=== PATIENT | female | born 1940 | race Caucasian/White ===

== ENCOUNTER 2016-09-17 13:00 | Inpatient (IN) | payer MEDICARE, BC ==
[~2016-09-17] VITALS: Ht 154.9 cm; Wt 62.9 kg
--- NOTE | ~2016-09-17 | ENPV ---
Carotid Duplex Study Demographics Patient Name NELIDA VALENCIA Date of Study 09/18/2016 Patient Number [id number] Gender Female Date of 1940 Age 76 Visit Number [id number] Height 61 Accession Number [id number] Weight 137 Referring Ollie Calderon MD Interpreting Chi Webber MD Physician Physician Physician Ordering Ollie Medina Contract Recruiter Physician Kvng [employer]IV[employer] Display Designer Outside Siena Perez [facility], T Conclusions Summary The right internal carotid artery has mild, 1-39%, plaque and stenosis. The right vertebral artery is present with antegrade flow. The left internal carotid artery has mild, 1-39%, plaque and stenosis at proximal ICA, there are elevated velocities of 108/31 cm/s at distal ICA. The left vertebral artery is present with antegrade flow. Procedure Type of Study: Cerebral:Carotid, Carotid Doppler Bilateral. Indications for Study:Stroke. Appropriate Use Criteria:9 Patient Status:Routine. Study Location:Inpatient Portable. Technical Quality:Adequate visualization. Velocities are measured in cm/s ; Diameters are measured in cm Carotid Right Measurements Carotid Left Measurements + +--------+--------+ + + + +--------+ --------+ + + !Location !PSV !EDV !Angle !%Stenosis ! !Location !PSV ! EDV !Angle !%Stenosis ! + +--------+--------+ + + + +--------+ --------+ + + !Prox CCA !82 !15 !60 ! ! !Prox CCA !88 ! 13 !60 ! ! + +--------+--------+ + + + +--------+ --------+ + + !Dist CCA !68 !12 !60 ! ! !Dist CCA !61 ! 11 !60 ! ! + +--------+--------+ + + + +--------+ --------+ + + !Prox ICA !68 !16 !60 ! ! !Prox ICA !71 ! 18 !60 ! ! + +--------+--------+ + + + +--------+ --------+ + + !Dist ICA !86 !19 !60 ! ! !Dist ICA !108 ! 31 !60 ! ! + +--------+--------+ + + + +--------+ --------+ + + !Prox ECA !84 ! !60 ! ! !Prox ECA !83 ! !60 ! ! + +--------+--------+ + + + +--------+ --------+ + + !Vertebral !48 !10 !60 ! ! !Vertebral !62 ! 14 !60 ! ! + +--------+--------+ + + + +--------+ --------+ + + !Subclavian !137 ! !60 ! ! !Subclavian !147 ! !60 ! ! + +--------+--------+ + + + +--------+ --------+ + + - There is antegrade vertebral flow noted on the right side. - There is antegrade verte bral flow noted on the left side. - Add'l Measurements:ICAPSV/CCAPSV 1.05.ICAEDV/CCAEDV 1.27. - Add'l Measurements:ICAPS V/CCAPSV 1.23.ICAEDV/CCAEDV 2.38. Impressions Right Impression There is a mild amount of smooth heterogeneous plaque in the right internal carotid artery . Left Impression There is a mild amount of smooth heterogeneous plaque in the left internal carotid artery . Signature dtt: SHRUTHI VELAZQUEZ dtd: 09/18/16 1015 Physician Self Edit
--- NOTE | ~2016-09-17 | CON ---
PATIENT'S NAME: NELIDA VALENCIA [facility] AGE: 76 Y [address] ROOM: [place] [address] LOCATION: [facility] [place] ADMIT DATE: 09/17/2016 Consultation DISCHARGE DATE: 09/22/2016 FAMILY PHYSICIAN: Physician, Unknown ATTENDING PHYSICIAN: Adam Levin I personally saw the patient via teleconferencing with nurse practitioner, Martha Browne, on 09/18/2016. Rdz portions of history and examination were repeated. I agree with the discussed assessment and plan of care. Lilliam Foy M.D. Tele specialist. MD YIFAN SCHMID/modl /[id number] d: t: 09/24/16 1141, CONSULTATION REPORT
--- NOTE | ~2016-09-17 | DS ---
PATIENT'S NAME: NELIDA VALENCIA [facility] AGE: 76 Y [address] ROOM: [address] [address] LOCATION: [facility] ADMIT DATE: 09/17/2016 Discharge Summary DISCHARGE DATE: 09/22/2016 FAMILY PHYSICIAN: Physician, Unknown ATTENDING PHYSICIAN: Adam Levin FINAL DIAGNOSES: 1. 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 2. Essential hypertension. 3. Dyslipidemia. 4. Osteoarthritis. 5. Lumbar stenosis. Please see the history and physical dictated by Dr. Levin for full details, but in short, the patient was transferred from [place] after presenting with aphasia. LABORATORY DATA: At discharge, sodium 140, potassium 3.9, chloride 109, CO2 23, BUN 5, and creatinine 0.4. Magnesium is 2.1. Cholesterol 170, HDL 67, LDL 93. Troponin on admission was less than 0.04. White blood cell count on admission 12.8, hemoglobin 13.7, hematocrit 41, and platelet count 230. RADIOLOGIC STUDIES: MRI of the brain done on admission did show a large left MCA territory ischemic stroke. MRI of the brain that was done did show a large stroke in the left MCA territory. Cardiovascular Studies: Echocardiogram done on admission showed an ejection fraction was 60%, she had a severely dilated left atrium, she had diastolic dysfunction and mild-to- moderate aortic regurgitation. A bubble study was negative. A SILVIA was done because of concern that she may have thrombus in the atrium, this was done by Dr. Pride. At that time, there was a suggestion of PFO by Doppler. A cardiac CT then was completed and the cardiac CT did not show any evidence of patent foramen ovale. HOSPITAL COURSE: The patient was admitted to the hospital. She was seen by Neurology. Her presentation was passed the tPA window. She was given IV fluids because her blood pressures were on the low side. PT, OT, and Speech Therapy did see her and assess her. She did have an MRI which did show that she had the large MCA stroke. She initially had Accu-Cheks and her blood sugars were stable. The decision was made to try and keep her blood pressure in the 140s-150s range. Therefore, her home medications were held and she did receive IV fluids. She was seen in evaluation by Dr. Box as a candidate for rehab. The family did state from the outset that it might be easier for them to have physical therapy close to where one of them were close to their home in [place]. Neurology did think that she should have a SILVIA to make sure she did not have any left atrial thrombi. The SILVIA was somewhat PATIENT'S NAME: NELIDA VALENCIA [facility] AGE: 76 Y [address] ROOM: [address] [place], [place] [address] LOCATION: [facility] ADMIT DATE: 09/17/2016 Discharge Summary DISCHARGE DATE: 09/22/2016 FAMILY PHYSICIAN: Physician, Unknown ATTENDING PHYSICIAN: Adam Levin A suggestive of PFO and therefore a cardiac CT was done. The cardiac CT was felt not to show that there was a PFO. The patient was informed that she would not need any surgical intervention. She did continue to work with Therapy. Speech did upgrade her the day prior to discharge to a mechanical soft diet with thin liquids. Arrangements were made for her to be transferred to [facility] in [place]. DISCHARGE INSTRUCTIONS: She is to have a soft mechanical diet with thin liquids and weightbearing as tolerated. MEDICATIONS: 1. Lipitor 40 mg daily. 2. Plavix 75 mg daily. 3. Protonix 40 mg daily. 4. Tylenol 650 mg every 4 hours as needed. 5. Tramadol 50 mg every 6 hours as needed for pain. 6. Multivitamin daily. 7. Calcium with vitamin D 2 tablets daily. 8. Lopressor 12.5 mg twice daily, hold if her heart rates less than 60 or systolic blood pressure less than 110. I did discuss this discharge with Neurology, with Dr. Pride from Cardiology, and with Dr. Mal Caballero, the patient's primary care provider. KEVIN MARTINEZ MD LAW/modl /[id number] CC: MD Mal Yañez MD d: 09/22/16 0311 t: 10/12/16 1832, DISCHARGE SUMMARY
--- NOTE | ~2016-09-17 | ECHO ---
Transesophageal Echocardiography Report (SILVIA) Demographics Patient Name NELIDA VALENCIA Date of Study 09/20/2016 Patient Number [id number] Visit Number [id number] Date of 1940 Room Number [address] Gender Female Number Age 76 year(s) Referring Erick Gil MD Bi Consultant Miriam Goel, Physician RT,RVT,RDCS Physician Interpreting Makenzie Pride MD Knockout Man Physician Supervising Ordering Makenzie Pride MD, MD/MLP Physician Nurse Stress Organic Preparation Technician Conclusions Summary Normal right and left ventricular size and systolic function. The left atrium is mildly dilated. There is no thrombus in the left atrial appendage. There appears to be a patent foramen ovale by color Doppler. Informed consent was obtained, bubble study was done, there is evidence for a PFO with left to right shunting, negative contrast noted in RA. No e/o right to left shunting, however, pt unable to cough/valsalva due to deep sedation for SILVIA. The right atrium is mildly dilated. No significant valvular abnormalities. There is Grade I atheroma in the descending aorta. Recommendation Will get a Cardiac CT to evaluate for PFO/possible shunt in more detail. Procedure Type of Study Procedure Date Date: 09/20/2016 Start: 01:12 PM Study Location: Echo Lab Technical Quality: Excellent Indications:CVA. Appropriate Use Criteria: 9 Patient Status: Routine Contrast Medium: Bubble Study. HR: 96 bpm BP: 157/72 mmHg O2 Saturation: 95 % SILVIA Performed By: the attending and the learning development specialist Type of Anesthesia: Moderate sedation Findings Left Ventricle The left ventricle is normal in size . Right Ventricle Normal right ventricular size and function. Left Atrium The left atrium is mildly dilated. There is no thrombus in the left atrial appendage. There appears to be a patent foramen ovale by color Doppler. Informed consent was obtained, bubble study was done, there is evidence for a PFO with left to right shunting, negative contrast noted in RA. No e/o right to left shunting, however, pt unable to cough/valsalva due to deep sedation for SILVIA. Right Atrium The right atrium is mildly dilated. Mitral Valve Normal mitral valve structure and function. Mild mitral regurgitation by color Doppler. Tricuspid Valve Normal appearing tricuspid valve. Trivial tricuspid regurgitation by color Doppler. Pulmonic Valve Normal pulmonic valve structure and function. Miscellaneous The patient was brought to the [facility] lab in the fasting state after informed consent was obtained in the written and verbal format. Bite block was placed by me. Once adequate anesthesia was obtained with anesthesia guidance with propofol sedation the SILVIA probe was placed by me down into the stomach. It was pulled back slightly after a few views were obtained in the transgastric level to the transesophageal position where the majority of the case was carried out. At the end of the case the probe was rotated and withdrawn. Patient tolerated the procedure well. There is Grade I athroma in the descending aorta. Signature dtt: HEMANT HARP dtd: 09/20/16 9918 Physician Self Edit
--- NOTE | ~2016-09-17 | CON ---
PATIENT'S NAME: NELIDA VALENCIA [facility] AGE: 76 Y [address] ROOM: [place] [address] LOCATION: [facility] ADMIT DATE: 09/17/2016 Consultation DISCHARGE DATE: FAMILY PHYSICIAN: PHYSICIAN, UNKNOWN ATTENDING PHYSICIAN: KEATON LEVIN Consult for Dr. Keaton Levin, hospitalist. HISTORY OF PRESENT ILLNESS: This 76-year-old lady is referred for rehab evaluation, admitted on 09/17/2016 with previous known history of hypertension and dyslipidemia. The onset of her symptomatology was inability to communicate/talk. She was seen at the local hospital and was found to have dense right-sided paralysis with aphasia, both receptive and expressive, more dense, inability to express and still is unable to express, but she can comprehend. She is markedly apraxic. She did reportedly have a CT scan of the brain which showed left-sided middle cerebral artery ischemic stroke, was upon initial evaluation deemed not a candidate for tPA. She has a history of possible atrial fibrillation, now in sinus rhythm. Also history of hypertension, dyslipidemia, osteoporosis, and lumbar spine stenosis. She is now alert, I feel she is oriented, can follow instructions. Can move bilateral upper and lower extremities. There is very minimal and less ability to coordinate her right upper and lower extremity in comparison to the left. She has very minimal right facial weakness; however, tongue and soft palate are moving symmetrical. She can comprehend, but she requires modeling to execute. She is apraxic and is continuing to persist. She has slight difficulty to attend to the right temporal visual field. Has some neglect also. Now not in distress. Vitals are as follow: Blood pressure 127/60, temperature 98.2, pulse 88, and respiration rate is 18. She is 5 feet 1 inch tall and weighs 62.5 kg. She can control her bowel and bladder without difficulty. PATIENT'S NAME: NELIDA VALENCIA [facility] AGE: 76 Y [address] ROOM: [address] [place], [place] [address] LOCATION: [facility] ADMIT DATE: 09/17/2016 Consultation DISCHARGE DATE: FAMILY PHYSICIAN: PHYSICIAN, UNKNOWN ATTENDING PHYSICIAN: KEATON LEVIN Deep tendon reflex 1+ throughout. Can ambulate in excess of 300 feet with contact guard assistance and supervision. MEDICATIONS: She is on the following medications: 1. Plavix. 2. Tylenol. 3. Lactated Ringer's. 4. NaCl 0.9%. 5. Protonix. 6. Lipitor. 7. Aspirin. In discussion with her son who was available, family wants to take her to close to her sister where she lives in [place] and he lives far away on the border of [place] and [place]. I feel that she will need probably some intensive rehabilitation for about 1-2 weeks and thereafter on outpatient basis, mostly to be considering on speech therapy. She needs not to drive until she is re-evaluated. She should avoid alcoholic beverage for the time being. She should follow with her family physician as soon as she is discharged. Thank you for this referral. All the above was discussed with the son, he verbalized understanding and in agreement. MD SAIMA FLETCHER/lisal /[id number] d: 09/19/162104 t: 09/20/16 0720, CONSULTATION REPORT
--- NOTE | ~2016-09-17 | CON ---
PATIENT'S NAME: NELIDA VALENCIA [facility] AGE: 76 Y [address] ROOM: [place] [address] LOCATION: [facility] ADMIT DATE: 09/17/2016 Consultation DISCHARGE DATE: FAMILY PHYSICIAN: PHYSICIAN, UNKNOWN ATTENDING PHYSICIAN: KEATON QUACH ADDENDUM: The patient did come in on aspirin, so we did change her antithrombotic to Plavix 75 mg p.o. daily. ANABELLA ARENAS APRN PP/ml /[id number] d: 09/21/16 1324 t: 09/28/16 1734, CONSULTATION REPORT
--- NOTE | ~2016-09-17 | HP ---
PATIENT'S NAME: [facility] AGE: 76 Y [address] ROOM: [address] [place], [place] [address] LOCATION: [facility] ADMIT DATE: 09/17/2016 History & Physical DISCHARGE DATE: FAMILY PHYSICIAN: PHYSICIAN, UNKNOWN ATTENDING PHYSICIAN: KEATON QUACH DATE OF SERVICE: CHIEF COMPLAINT: Weakness. HISTORY OF PRESENT ILLNESS: A 76-year-old lady with a past medical history of hypertension and hyperlipidemia, very functional, lives at home by herself, usually goes to get coffee with the neighbors at night and in the morning, which did not happen today. Neighbor called around 11 o'clock, and she answered the phone but could not talk. She was brought to the local emergency department, where she was found to have a dense right-sided paralysis as well as significant expressive aphasia. NIH Stroke scale was calculated and it was 25. CAT scan of the head was done, which did show left-sided MCA stroke. Teleneurology consultation was obtained at the other hospital and per neurologist, she is outside window of the tPA because her stroke is showing up on the CAT scan now. She was deemed a non-tPA candidate and transferred here for further medical care. On my inquiry, she is having significant aphasia with only yes or no answer and significant right-sided neglect. She denied to have any headache at this point or any trouble with the eyes, any chest pain, any palpitations, or any discomfort. She denied having any leg swelling. She endorsed that she is having significant weakness in the right arm as well as right leg which did not improve since 9 this morning. She denied any abdominal pain, any burning on urination. She does endorse having multiple joint pains at this point. Family did note that she had been diagnosed with abnormal heart rhythm in the past, which was worked up later on and turned out to be nothing. Transferring facility also appreciated possible atrial fibrillation on the telemetry. PAST MEDICAL HISTORY: Hyperlipidemia, hypertension, osteoarthritis, lumbar stenosis. MEDICATIONS: Please see MAR. SOCIAL HISTORY: Never a smoker. No alcohol or drug abuse. PATIENT'S NAME: [facility] AGE: 76 Y [address] ROOM: [address] [place], [place] [address] LOCATION: [facility] ADMIT DATE: 09/17/2016 History & Physical DISCHARGE DATE: FAMILY PHYSICIAN: PHYSICIAN, UNKNOWN ATTENDING PHYSICIAN: KEATON QUACH FAMILY HISTORY: Father did have coronary artery disease. REVIEW OF SYSTEMS: All other systems were reviewed and were negative, except what is mentioned in the HPI. ALLERGIES: THE PATIENT IS ALLERGIC TO PENICILLIN. PHYSICAL EXAMINATION: VITAL SIGNS: 156/97, 16, 72, afebrile. GENERAL: In no acute distress. Communicates with yes and no answer at this point. HEENT: Head: Atraumatic, normocephalic. Eyes: Nonicteric. No pallor. Oropharynx: Moist mucous membranes. CARDIOVASCULAR: Irregular. Systolic ejection murmur at the aortic region 3/6 radiating to the carotids. LUNGS: Clear to auscultation bilaterally. ABDOMEN: Soft, nontender, and nondistended. Bowel sounds present. EXTREMITIES: No clubbing, cyanosis, or edema. PSYCHIATRIC: Cannot be assessed at this point. SKIN: No bruises, rashes. NEUROLOGIC: The right-sided facial droop noted. Right upper extremity power 3/5. Right lower extremity power 3/5. Hyperreflexia noted. No sensory loss noted. Right-sided neglect noted. DIAGNOSTIC DATA: CAT scan from the outside facility did show a left-sided MCA stroke. Lab work from the outside facility included an EKG which showed sinus rhythm with T- wave inversions in the inferior as well as lateral leads. WBC count was 15, hemoglobin 15, platelets 249, INR 1.2. ASSESSMENT: 1. Left middle cerebral artery ischemic stroke. 2. Essential hypertension. 3. Hyperlipidemia. 4. Osteoarthritis. 5. Lumbar stenosis. 6. Acute ST-T wave changes in the EKG. PLAN: PATIENT'S NAME: NELIDA VALENCIA [facility] AGE: 76 Y [address] ROOM: [place] [address] LOCATION: [facility] ADMIT DATE: 09/17/2016 History & Physical DISCHARGE DATE: FAMILY PHYSICIAN: PHYSICIAN, UNKNOWN ATTENDING PHYSICIAN: KEATON QUACH We are going to admit this patient for observation at this point. Neurology consultation will be obtained. We will get MRI as well as carotid Dopplers. Cardiac echo will be done today as well. We will repeat the EKG and see if there are any dynamic changes. At this point, I think these are secondary to her acute stroke. She is not complaining of any chest pain or any chest pressure at this point. We will continue to monitor and if needed, we will get a Cardiology consultation. DVT prophylaxis with SCDs today. Aspirin 81 mg. Pantoprazole for stress ulcer prophylaxis. The patient is full code. MD SHANTI FONTAINE/ml /[id number] D: 352 T: 230 HISTORY & PHYSICAL
--- NOTE | ~2016-09-17 | CON ---
PATIENT'S NAME: NELIDA VALENCIA [facility] AGE: 76 Y [address] ROOM: [place] [address] LOCATION: [facility] ADMIT DATE: 09/17/2016 Consultation DISCHARGE DATE: FAMILY PHYSICIAN: PHYSICIAN, UNKNOWN ATTENDING PHYSICIAN: KEATON QUACH I have reviewed the records. I have discussed the case with . Martha Browne. I have personally examined and assessed the patient. I agree with documentation as noted by Ms. Browne. We will follow additional comments. The patient has documentation of left middle cerebral artery distribution stroke, likely a branch occlusion. Probably the deficits are limited. Aphasia. Otherwise, no definite motor deficits. The rest of procedure really unrevealing. Echocardiogram showed a dilatation of left atrium and otherwise no indication of thrombotic source. At this point, we will ask the shipyard painter apprentice to evaluate the patient for possible SILVIA/transesophageal echocardiogram and possible long-term monitoring after the hospitalization. I will ask for neuroradiologist to evaluate the problems as well. Followup will be needed after this. Thank you for allowing us to participate in the patient's care. MD CARLOTTA DANIELS/ml /[id number] d: t: 09/20/16 0100, CONSULTATION REPORT
--- NOTE | ~2016-09-17 | CON ---
PATIENT'S NAME: ANNIE [facility] AGE: 76 Y [address] ROOM: [address] [place] [id number] LOCATION: [facility] ADMIT DATE: 09/17/2016 Consultation DISCHARGE DATE: FAMILY PHYSICIAN: PHYSICIAN, UNKNOWN ATTENDING PHYSICIAN: KEATON QUACH DATE OF CONSULTATION: 09/18/2016 TIME SEEN: 2:30 p.m. CHIEF COMPLAINT: CVA. HISTORY OF PRESENT ILLNESS: This is a 76-year-old female who has a past medical history of hypertension and hyperlipidemia. The patient is very functional and lives at home by herself. She usually goes to get coffee with her neighbors, but when she did not show up, her neighbor called her around 11 o'clock. The patient answered the phone, was unable to talk. She was brought to the critical access emergency department where she was found to have right-sided paralysis as well as significant expressive aphasia. Her NIH Stroke Scale at that time was calculated at 25. A CAT scan of the head was done which did show a left- sided MCA stroke distribution. She was not considered for tPA because her stroke is showing up on 1/3rd of the brain. Therefore, she is not a candidate. She was transferred to [facility] for further care. On our exam, she does have global aphasia and can only answer yes or no by nods; however, I do believe she is quite receptive aphasic also and is nodding yes to many answers that may be no. She definitely has right-sided neglect with paralysis. She denies any headache or vision disturbances. Denies any chest pain, palpitations, or discomfort. The family is present and helps with the exam and history. The family states she has been diagnosed with an abnormal heart rate and has worn a monitor for 2 weeks in the past, but has never been diagnosed with atrial fibrillation. Of note, they said this usually occurs before and after surgery. The patient did have a hernia repair 8 weeks ago. The EKG from the transferring facility does show frequent PACs. PAST MEDICAL HISTORY: Includes hyperlipidemia, hypertension, osteoarthritis, and lumbar stenosis. MEDICATIONS: Please see the full admission list for medications. SOCIAL HISTORY: The patient has never smoked, nor does she imbibe any alcohol or use illicit PATIENT'S NAME: ANNIE [facility] AGE: 76 Y [address] ROOM: [address] [place], [place] [address] LOCATION: [facility] ADMIT DATE: 09/17/2016 Consultation DISCHARGE DATE: FAMILY PHYSICIAN: PHYSICIAN, UNKNOWN ATTENDING PHYSICIAN: KEATON QUACH. FAMILY HISTORY: Positive for her father having coronary artery disease. REVIEW OF SYSTEMS: All systems were reviewed and are negative except what is mentioned in the HPI. ALLERGIES: THE PATIENT IS ALLERGIC TO PENICILLIN. I AM UNSURE WHAT REACTION SHE HAS. PHYSICAL EXAMINATION: VITAL SIGNS: Blood pressure 156/97, respirations 16, heart rate 72, and the patient is afebrile. GENERAL: The patient is in no acute distress and is well groomed. HEENT: The head is atraumatic and normocephalic. Her eyes are nonicteric with no pallor. CARDIOVASCULAR: She is in a sinus rhythm with frequent PACs. There is a systolic ejection murmur at the aortic region, 3/6. LUNGS: Clear to auscultation bilaterally. ABDOMEN: Soft, nontender, and nondistended with bowel sounds present in all quadrants. EXTREMITIES: No edema noted. +2 pulses. SKIN: No bruises or rashes. No sign of any trauma or fall. NEUROLOGIC: The patient has a right-sided facial droop. She is globally aphasic. She is alert and participates in the exam. Her Stroke Scale is as such: Level of consciousness 0. Month and age 1. Open and close eyes 0. Best gaze 0. Visual field testing 0. Facial paresis 1. Left arm 0. Right arm 2. Left leg 0. Right leg 2. Limb ataxia 1. Sensory 0. Best language 3. Dysarthria 2. Extinction and inattention 1. DIAGNOSTIC DATA: Diagnostics reviewed include an MRI. The MRI states there is a large acute or early subacute left MCA territory ischemic infarct. There is an abnormal signal of the left MCA beyond proximal M1 segment. This is likely a branch occlusion. We did do a lipid panel which shows a cholesterol of 170, triglycerides of 52, HDL of 67, and LDL of 93. An echocardiogram and carotids will be completed and reviewed also. ASSESSMENT AND PLAN: 1. 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 We will certainly look at reasons why this patient could have had this stroke which may be cardioembolic. We will keep her telemetry monitor on and also recommend echocardiogram. If the echo is normal, we PATIENT'S NAME: NELIDA VALENCIA [facility] AGE: 76 Y [address] ROOM: [address] [place], [place] [address] LOCATION: [facility] ADMIT DATE: 09/17/2016 Consultation DISCHARGE DATE: FAMILY PHYSICIAN: PHYSICIAN, UNKNOWN ATTENDING PHYSICIAN: KEATON QUACH may want to do a SILVIA. We will follow up on these results as well as the carotids. 2. Global aphasia. We will have Speech Therapy work with the patient. 3. Right hemiparesis. OT and PT are scheduled to work with this patient regarding her right hemiparesis. 4. Stroke risk factors of hypertension and hyperlipidemia. We will start the patient on an aspirin. She is currently not on any aspirin. We will also use high-intensity statin in this acute phase of stroke. The plan of care was discussed with Dr. Marquez. Dr. Ocampo was present during the exam and helped formulate the plan of care. We would like to thank you for the opportunity to participate in this very pleasant woman's care. ANABELLA ARENAS APRN FOR KIERAN OCAMPO MD PP/modl /[id number] d: 09/21/16 1340 t: 09/28/16 1736, CONSULTATION REPORT
--- NOTE | ~2016-09-17 | ECHO ---
Transthoracic Echocardiography Report (TTE) Demographics Patient Name NELIDA VALENCIA Date of Study 09/18/2016 Patient Number [id number] Visit Number [id number] Date of 1940 Room Number [address] Gender Female Number Age 76 year(s) Referring Ollie Calderon Trash Collector Siena Perez RDCS, Physician RVT Physician Interpreting Erick Gil MD Obstetrics/Gynecology Nurse Physician Supervising Ordering Ollie Calderon MD/MLP Physician Nurse Stress Pack Master Conclusions Summary Technically difficult exam. The estimated left ventricular ejection fraction is 60%. Mild concentric left ventricular hypertrophy. Diastolic assessment reveals Grade II pseudonormal diastolic function . The left atrium is severely dilated by LA volume index measurement. The interatrial septum appears aneurysmal. Informed consent was obtained, bubble study was done, bubbles did not cross into left atrium. Possible negative sign seen in right atrium. There is mild to moderate aortic regurgitation by color Doppler. The aortic valve is mildly sclerotic. Procedure Type of Study TTE procedure:2D Echocardiogram. Procedure Date Date: 09/18/2016 Start: 10:34 AM Study Location: Inpatient Portable Technical Quality: Fair Indications:CVA. Appropriate Use Criteria: 9 Patient Status: Routine Contrast Medium: Bubble Study. HR: 77 bpm BP: 152/66 mmHg M-Mode/2D Measurements LV Diastolic Dimension: 4.55 cm LV Systolic Dimension: 1.98 cm LV Septum Diastolic: 0.93 cm LV PW Diastolic: 0.92 cm AO Root Dimension: 3.2 cm Cardiac Output: 4.72 l/min AV Cusp Separation: 1.8 cm RV Diastolic Dimension: 2.36 cm LA volume: 154 ml LVOT: 1.8 cm RV Base: 3.21 cm LVOT VTI: 24.1 cm RV Mid: 2.21 cm LV Stroke volume: 61.3 ml TAPSE: 2.46 cm TDI-S': 15 cm/s Doppler Measurements AV Peak Velocity: 1.3 m/s MV Peak E-Wave: 0.89 m/s AV Peak Gradient: 6.76 mmHg MV Peak A-Wave: 0.48 m/s AV Mean Gradient: 5 mmHg MV E/A Ratio: 1.85 LVOT Peak Velocity: 0.99 m/s MV P1/2t: 54 msec AV P1/2t: 456 msec TR Gradient:16.97 mmHg PV Peak Velocity: 1.16 m/s Estimated RAP:15 mmHg PV Peak Gradient: 5.38 mmHg Estimated RVSP: 32 mmHg Estimated PASP: 31.97 mmHg E' Septal Velocity: 0.06 m/s A' Septal Velocity: 0.08 m/s E' Lateral Velocity: 0.11 m/s A' Lateral Velocity: 0.05 m/s Findings Left Ventricle Mild concentric left ventricular hypertrophy. Diastolic assessment reveals Grade II pseudonormal diastolic function . Right Ventricle Normal right ventricle structure and function. Left Atrium The left atrium is moderately dilated. The interatrial septum appears aneurysmal. Informed consent was obtained, bubble study was done, bubbles did not cross into left atrium. Possible negative sign seen in right atrium. Right Atrium Normal right atrial size. Mitral Valve Mild mitral regurgitation by color Doppler. Mild mitral annular calcification. Aortic Valve There is mild to moderate aortic regurgitation by color Doppler. The aortic valve is mildly sclerotic. Tricuspid Valve Mild tricuspid regurgitation by color Doppler. Pulmonic Valve The pulmonic valve is not well visualized. Pericardial Effusion No evidence of pericardial effusion. Miscellaneous Visualized portions of the aortic root and ascending aorta appear normal in size. Pleural Effusion No evidence of pleural effusion. Signature dtt: Jeffery Suarez (cardio) dtd: 09/18/16 1034 Physician Self Edit
[2016-09-17] MEDS ORDERED: HYDRODIURIL12.5 MG PO (15:30)
[2016-09-17] MEDS ORDERED: TOPROL XL25 MG PO (15:30)
[2016-09-17] MEDS ORDERED: GLUCOSAMINE H1500 MG PO (15:31)
[2016-09-17] MEDS ORDERED: ULTRAM50 MG PO (15:31)
[2016-09-17] MEDS ORDERED: THERAGRAN-M1 TAB PO (15:31)
[2016-09-17] MEDS ORDERED: CALCIUM 500 +1 EAC4 PO (15:32)
[2016-09-17] MEDS ORDERED: ASPIRIN LO-DOSE81 MG PO (15:33)
--- NOTE | 2016-09-17 16:40 | NUR ---
76 Y/O FEMALE ADMITTED FOR CVA. PT FRIEND STATES THAT SHE CALLED NELIDA NICKERSON THIS MORNING @ 0915 SHE NORMALLY COMES OVER FOR TEA IN THE MORNING, BUT THERE WAS NO ANSWER, HER NEIGHBOR CALLED HER AGIAN AT 11AM, NELIDA NICKERSON ANSWERED THE PHONE BUT WAS UNABLE TO TALK SO HER NEIGHBOR CAME OVER TO HER HOUSE. NELIDA NICKERSON WAS ABLE TO WALK TO THE DOOR & ANSWER IT BUT IT TOOK HER 15 MINUTES TO FIGURE OUT HOW TO UNLOCK THE SCREEN DOOR. HER FRIEND CALLED 911 AND PT WAAS TRANSPORTED HERE FROM THE [facility]. ALLERGIES - PENICILLIN MEDICAL & SURGICAL HISTORY - RT ING HERNIA REPAIR 07/26/16, RT KNEE SCOPE, LAP AUSTIN, APPY, CARPEL TUNNEL REALEASE, TL SEGUNDO. HTN, HIGH CHOL, OSTEOPORSIS, OSTEOARTHRITIS, POST MENOPAUSAL, NON DRINKER, NON SMOKER. REPORT GIVEN TO PT PRIMARY CARE NURSE XAVIER RN ADM EDUCATION COMPLETE WITH PT & FAMILY IN ROOM
[2016-09-17 17:28] LABS: CPK 53 IU/L (21-215)
[2016-09-17 17:30] LABS: CREATININE 0.5 mg/dL (0.5-1.1)
[2016-09-17 17:37] LABS: ESTIMATED GFR (MDRD EQUATION) > 60
--- NOTE | 2016-09-17 17:44 | NUR ---
Significant Event:PT IS ALERT. MAKE INCOMPREHENSIBLE SOUNDS. DOES NOT APPEAR TO UNDERSTAND COMPLEX COMMANDS OR QUESTIONS. WILL NOD AT TIMES. BUT IS NOT ALWAYS ACCURATE PER FAMILY. R) ARM AND LEG ARE WEAK. NO C/O NUMBNESS OR TINGLING. CLEAR LUNG SOUNDS ACTIVE BS. NIHSS 10. DRAG R) FOOT WHEN AMBULATING. PLANS MRI TODAY IV R) AC. Follow up:
--- NOTE | 2016-09-18 05:17 | NUR ---
Significant Event: PATIENT IS UNABLE TO TO RESPOND VERBALLY ALTHOUGHT SEH DOES OCCASIONALLY MUMBLE. SHE CAN NOT YES OR NO. NO VOID ON THIS SHIFT. LR INFUSING AT 125. RIGHT SIDED WEAKNESS. NIH 11. FAMILY AT BEDSIDE ALL NIGHT. Follow up:
[2016-09-18 05:28] LABS: BASOPHIL % 0.2 %; EOSINOPHIL # 0.2 K/uL (0.0-0.5); EOSINOPHIL % 1.4 %; HEMOGLOBIN 13.7 g/dL (10.0-15.0); IMMATURE GRANULOCYTE # 0.1 K/uL (0.0-0.3); IMMATURE GRANULOCYTE % 0.6 %; LYMPHOCYTE # 1.3 K/uL (0.8-4.0); LYMPHOCYTE % 9.8 %; MCH 30.2 pg (27.0-34.0); MCHC 33.4 gm/dL (32.0-36.5); MCV 90.3 fl (83.0-98.0); MONOCYTE # 0.9 K/uL (0.0-1.0); MONOCYTE % 6.7 %; MPV 9.9 fl (9.4-12.4); NEUTROPHIL # (ANC) 10.4 K/uL (1.8-7.8); NEUTROPHIL % 81.3 %; NRBC % 0 /100WBC (0-0.00); PLATELET COUNT 230 K/uL (150-450); RBC 4.54 M/uL (3.50-5.50); RDW-CV 13.6 % (11.9-14.6); WBC 12.8 K/uL (4.0-11.0)
[2016-09-18 05:47] LABS: ANION GAP 11.2 (10.0-19.0); BLOOD UREA NITROGEN 15 mg/dL (6-24); CALCIUM 8.8 mg/dL (8.5-10.5); CHLORIDE 107 mMol/L (96-110); CO2 25 mMol/L (22-32); CREATININE 0.5 mg/dL (0.5-1.1); ESTIMATED GFR (MDRD EQUATION) > 60; POTASSIUM 4.2 mMol/L (3.7-5.1); SODIUM 139 mMol/L (135-145)
--- NOTE | 2016-09-18 08:50 | NUR ---
ROUTINE CVA CONSULT FOR DIET ED NOTED. WILL COMPLETE PRIOR TO DISMISSAL APPROPRIATE.
--- NOTE | 2016-09-18 12:19 | NUR ---
Significant Event:PT IS ALERT. MOSTLY NON-VERBAL. NODS. FOLLOW SIMPLE COMMANDS. R) EYE SEEMS TO HAVE SOME IMPAIRMENT. NIHSS 8. CLEAR LUNG SOUNDS ACTIVE BS. ON HONEY THICKENED PUREED DIET. 1:1 FEEDER. CRUSHED MEDS IN APPLE SAUCE. IV R) AC RUNNING. HAD CAROTIDS AND ECHO DONE. Follow up:[facility]
--- NOTE | 2016-09-18 16:07 | NUR ---
Introduced self and role of care management to patient and her family. She lives in [place]. Family states that she is normally able to do all her own ADL's. Two days ago she was mowing her own lawn. We did discuss discharge options. I explained that with inpatient rehab she would have to participate in 3 hours of intense therapy a day. I also explained that we could look at a skilled stay if they felt rehab was too much for her. Her daughter lives in [place] and reached out to her primary physician to see who he would recommend for rehab in the [place] area. They will get me names of facilities to send referrals. They deny any needs at this time. Will continue to follow.
--- NOTE | 2016-09-18 16:21 | NUR ---
DIET ADVANCED TO PUREE AND HONEY THICK LIQUID DIET. PT IS NON-VERBAL, MUMBLED PER SHIFT REPORT. NOT APPROPRIATE FOR NUTRITION EDUCATION PER STROKE PROTOCOL AT THIS TIME. WILL ATTEMPT TO COMPLETE DIET EDUCATION WHEN MORE APPROPRIATE.
--- NOTE | 2016-09-19 04:58 | NUR ---
Significant Event: PATIENT IS ALERT AND ABLE TO REPOT NEEDS. SHE IS ABLE TO YAY NORTH/WELLSTT. PATIENT CAN SAY YES OR NO. OTHERWISE NEARLY NON-VERBAL. PATIENT WALKS TO THE BATHROOM WITH ASSIST OF 2. ALARMS ON AT ALL TIMES. Follow u
--- NOTE | 2016-09-19 12:18 | NUR ---
Social visit with patient and her family. They gave me a list of possible [facility] rehabs in [place] they would like me to look into. 1. [facility] P:[phone] F:[phone], 2. [facility] P:[phone] 3. [facility] P:[phone]. I did call and leave a message with Neva Montiel admission coordinator at [facility] to see if they had any beds. Will wait to hear back from her. Will continue to follow.
--- NOTE | 2016-09-19 15:20 | NUR ---
Referral faxed to Neva Mota at [facility].
--- NOTE | 2016-09-19 17:26 | NUR ---
SEVERE APHAGIA/NON VERBAL. 1PA. VSS. SBP 120'S-140'S. HR NS 70'S-80'S. AFEBRILE. RA. NO C/O PAIN. LS CLEAR. CONFIDENTIAL PATIENT R/T ESTRANGED DAUGHTER (ANANT BECKER NOT ALLOWED TO VISIT. IV TO L FA LR@125. PERRLA 3MM/BRISK. PUREE FOOD 1:1 FEEDER HONEY THICKEN LIQUID. MEDS CRUSH IN APPLESAUCE.NIH 9.PLAN IS TO [place] [facility]AB WITH DAUGHTER JOSE
--- NOTE | 2016-09-20 02:57 | NUR ---
Significant Event: PATIENT ALERT AND APHASIC/ NON VERBAL. DOES NOT ALWAYS NOD APPRORIATELY. CAN USUALLY COMMUNICATE NEEDS. VSS ON ROOM AIR. UP 1 ASSIST GAIT BELT WALKER. SCDS INTACT. IV TO RIGHT AC SALINE LOCKED. IV TO LEFT FOREARM RUNNING LR AT 125ML/HR. NPO AT MIDNIGHT FOR SILVIA TOMORROW AT 1PM. OTHERWISE PUREED DIET WITH NECTAR THICK LIQUIDS 1:1 FEEDER. MEDS CRUSHED IN APPLESAUCE. UP 30 MINS AFTER MEALS. NO COMPLAINTS OF PAIN. AFEBRILE. STROKE SCALE 8. Follow up:
--- NOTE | 2016-09-20 15:04 | NUR ---
APHASIC SEVERE. PUREED DIET,1:1 FEEDER, HONEY THICK. VSS. LS CLEAR. VD PER BR. NO BM TODAY. SILVIA TODAY. CONFIDENTIAL! PT AND FAMILY WOULD LIKE TO LEAVE AT 0545 ON THE DAY OF DC.FAMILY AT BEDSIDE. 1PA.
--- NOTE | 2016-09-21 03:52 | NUR ---
Significant Event: Patient alert and aphasic/nonverbal. Able to say yes and no - usually appropriately. able to communicate needs. vss on room air. up 1 assist gait belt walker. iv to left forearm saline locked. pureed diet with honey thick liquids, 1:1 feeder. meds crushed in applesauce up 30 mins after meals. no complaints of pain. afebrile. stroke scale 9. confidential. ct today to evaluate pfo and shunt at 0730 - hr must be in 60s for ct scan. given cardizem IV at 0700. Follow up:
[2016-09-21 04:34] LABS: ALBUMIN 2.8 gm/dL (3.5-5.0); ANION GAP 11.9 (10.0-19.0); BLOOD UREA NITROGEN 5 mg/dL (6-24); CALCIUM 8.6 mg/dL (8.5-10.5); CHLORIDE 109 mMol/L (96-110); CO2 23 mMol/L (22-32); CREATININE 0.4 mg/dL (0.5-1.1); ESTIMATED GFR (MDRD EQUATION) > 60; MAGNESIUM 2.1 mg/dL (1.8-2.6); PHOSPHORUS 3.1 mg/dL (2.5-4.9); POTASSIUM 3.9 mMol/L (3.7-5.1); SODIUM 140 mMol/L (135-145)
--- NOTE | 2016-09-21 14:02 | NUR ---
Updated patients daughter that [facility] rehab would accept patient on . Explained that I have left message for Neva at [facility]. Faxed additional referral information Britt requested. Will wait to hearback from [facility].
--- NOTE | 2016-09-21 16:15 | NUR ---
Received a call from Neva at [facility]. They can accept patient for admission tomorrow. I faxed updated referral information. Will fax orders when Dr Marquez completes them. I updated patient and family. Nurse to nurse phone number on front of chart ([phone]) to be called prior to patinet leaving in am with family.
--- NOTE | 2016-09-21 17:43 | NUR ---
Significant Event: Alert/aphasia, 1 assist/gait belt, up in chair, to CT scan, to PT gym, family @ bedside, NIHSS=6, able to speak few words, able to gesture and make needs known. voids per toilet, BM today, diet advanced to [facility]. soft/thin liquids, 1:1 feeder, Follow up: discharge to rehab in [place] tomorr
--- NOTE | 2016-09-22 05:10 | NUR ---
A&O. Aphasic, but able to answer yes/no questions appropriately. VSS. SBA with gaitbelt and walker. IV L LESLY RODRIGUEZ. . Family at bedside. Patient to transfer this morning to [facility] rehab in [place].
--- NOTE | 2016-09-22 05:48 | NUR ---
Uneventful shift. Patient pleasant and cooperatvie with cares. VSS. Continues to be aphasic, but able to answer yes/no questions appropriately. SBA with gaitbelt and walker. No c/o pain. Report called to Casi Lindsay at [facility] [phone].
== END 2016-09-22 06:25 | DRG 65 ==
LOC: GNTU 15:05
PROVIDERS: Internal Medicine; ADMIT Internal Medicine
DX: I63.542 Cerebral infarction due to unspecified occlusion or stenosis of left cerebellar artery (principal); G81.91 Hemiplegia, unspecified affecting right dominant side; G83.9 Paralytic syndrome, unspecified; I10 Essential (primary) hypertension; E78.5 Hyperlipidemia, unspecified; R47.01 Aphasia; M48.06 Spinal stenosis, lumbar region; R13.10 Dysphagia, unspecified; M19.90 Unspecified osteoarthritis, unspecified site; Z79.82 Long term (current) use of aspirin
CPT/HCPCS: A9577; C9113; J2060; J7030; J7120; Q9967